=== PATIENT | male | born 1945 | race Caucasian/White ===

== ENCOUNTER 2016-08-27 22:58 | Emergency (ER) | payer MEDICARE ==
[2016-08-27] MEDS ORDERED: TETRACAINE 0.5% OPHTH DROPS 15 ML LEFTEYE STA (23:21)
[2016-08-27] MEDS ORDERED: PROPARACAINE 0.5% OPHTH DROPS 15 ML ONE (23:23)
[2016-08-27] MEDS ORDERED: POLYMYXIN B/TRIMETH OPHTH DROPS LEFTEYE STA (23:43)
[2016-08-27] MEDS ORDERED: POLYMYXIN B/TRIMETH OPHTH DROPS ONE (23:47)
== END 2016-08-28 | disposition home or self-care (01) ==
DX: T15.92XA Foreign body on external eye, part unspecified, left eye, initial encounter (principal)
CPT/HCPCS: 99283; A9270; J3490